=== PATIENT | female | born 1990 | race Caucasian/White ===

== ENCOUNTER → 2016-07-07 | Outpatient (CLI) | payer OTHER ==
[~2016-07-07] MED LIST: BONE SUPPORT PO; CALCIUM 600/VIT1 CAP PO; FERRETTS I40 MG/15 M PO; IBU600 MG PO; MINERAL SUPPLEMENT; PRENATAL PO; PROBIOTIC FORMU1 CAP PO
== END ==
LOC: LDRO 15:40
DX: Z53.9 Procedure and treatment not carried out, unspecified reason (principal)

== ENCOUNTER 2016-09-03 21:59 | Outpatient (CLI) | payer OTHER ==
[~2016-09-03] VITALS: Ht 162.6 cm; Wt 69.5 kg
[2016-09-03 22:25] VITALS: BP 120/85; PULSE 67; TEMP 98.4
[2016-09-03 22:30] VITALS: BP 120/85; PULSE 67; TEMP 98.4
[2016-09-03] MEDS ORDERED: PRENATAL PO (22:32)
[2016-09-03] MEDS ORDERED: PROBIOTIC FORMU1 CAP PO (22:33)
[2016-09-03] MEDS ORDERED: BONE SUPPORT PO (22:35)
[2016-09-03] MEDS ORDERED: FERRETTS I40 MG/15 M PO (22:38)
[2016-09-03] MEDS ORDERED: CALCIUM 600/VIT1 CAP PO (22:40)
[2016-09-03] MEDS ORDERED: MINERAL SUPPLEMENT (22:41)
== END 2016-09-04 00:20 | disposition home or self-care (01) ==
LOC: LDRO 21:59
DX: O62.9 Abnormality of forces of labor, unspecified (principal); Z3A.31 31 weeks gestation of pregnancy

== ENCOUNTER 2016-09-04 03:54 | Inpatient (IN) | payer OTHER ==
[2016-09-04] VITALS (39 sets, daily range): BP systolic 103–180; BP diastolic 57–95; PULSE 63–122; TEMP 97.8–98.9
[~2016-09-04] VITALS: Ht 162.6 cm; Wt 69.5 kg
[~2016-09-04 03:54] MED LIST changes: -IBU600 MG PO
[2016-09-04 04:46] LABS: BASO # 0.1 (0.0-0.2); BASO % 0.4 % (0.0-2.0); EOS % 0.2 % (0-4.0); GRAN # 12.7 (1.4-6.5); GRAN % 81.1 % (42.2-75.2); HEMATOCRIT 40.8 % (37.0-47.0); HEMOGLOBIN 14.2 g/dl (12.5-16.0); LYMPH # 1.9 (1.2-3.4); MEAN CELL VOLUME 92 fl (80.0-100.0); MEAN CORPUSCULAR HEMOGLOBIN 32 pg (27.0-31.0); MEAN CORPUSCULAR HGB CONC 35 g/dl (33.0-37.0); MEAN PLATELET VOLUME 9.8 fl (7.4-10.4); MONO # 0.8 (0.1-0.6); MONO % 5.4 % (1.7-9.3); PLATELET COUNT 234 K/mm3 (130-400); RED BLOOD COUNT 4.46 M/mm3 (4.10-5.30); REDCELL DISTRIBUTION WIDTH-CV 13.2 % (11.5-14.5); WHITE BLOOD COUNT 15.7 K/mm3 (4.8-10.8)
[2016-09-05 08:00] VITALS: BP 108/62; PULSE 74; TEMP 97.7
[2016-09-05 13:00] VITALS: BP 113/75; PULSE 72; TEMP 97.6
[2016-09-05 16:28] VITALS: BP 114/76; PULSE 75; TEMP 97.3
[2016-09-05 21:45] VITALS: BP 118/71; PULSE 74; TEMP 97.8
[2016-09-06 06:25] VITALS: BP 91/66; PULSE 94; TEMP 97.5
[2016-09-06] MEDS ORDERED: IBU600 MG PO (09:23)
== END 2016-09-06 15:10 | disposition home or self-care (01) | DRG 775 ==
LOC: LDRO 03:54 → LDR 04:00 → OB 04:00
PROVIDERS: Obstetrics & Gynecology
PROC: 10E0XZZ Delivery of Products of Conception, External Approach (ICD-10-PCS; principal; 2016-09-04)
DX: O24.420 Gestational diabetes mellitus in childbirth, diet controlled (principal); O71.5 Other obstetric injury to pelvic organs; O99.824 Streptococcus B carrier state complicating childbirth; O77.0 Labor and delivery complicated by meconium in amniotic fluid; Z3A.39 39 weeks gestation of pregnancy; Z37.0 Single live birth
CPT/HCPCS: J2405; J2540; J2590; J7120

== ENCOUNTER 2018-03-30 19:15 | Outpatient (RCR) | payer BC ==
[~2018-03-30] VITALS: Ht 160 cm; Wt 82.6 kg
[~2018-03-30 19:15] MED LIST changes: +IBU600 MG PO
--- NOTE | 2018-04-09 20:15 | NUR ---
2008- EFM DC'D AT THIS TIME FOLLOWING REACTIVE FHT'S FOR BOTH BABY A AND B. MOTHER STATES GOOD FM AND FM AUDIBLE ON US. PT STATES SHE IS TO HAVE APPOINTMENT WITH DR. YOUNG THIS WEEK, WILL DISCUSS WITH HIM WHEN NEXT NST IS NEEDED. QUESTIONS ENCOURAGED AND ANSWERED. 2015- PT LEFT THE UNIT AMBULATORY WITH SPOUSE AND COUSIN.
[2018-04-12] MEDS ORDERED: MAGNESIUM200 MG (01:20)
[2018-04-12] MEDS ORDERED: VITAMIN C500 MG PO (01:20)
[2018-04-12] MEDS ORDERED: OMEGA-3 1000 MG1 CAP PO (01:21)
[2018-04-14] MEDS ORDERED: NEWMANS TOP (11:30)
[2018-04-15] MEDS ORDERED: IBU800 M1 PO (10:02)
[2018-04-15] MEDS ORDERED: NORCO 325 MG-51 TAB PO (10:03)
[2018-04-16] MEDS ORDERED: NORCO 325 MG-51 TAB PO (08:33)
== END 2018-06-20 | disposition home or self-care (01) ==
LOC: LDRO
DX: O30.003 Twin pregnancy, unspecified number of placenta and unspecified number of amniotic sacs, third trimester (principal); Z3A.35 35 weeks gestation of pregnancy

== ENCOUNTER 2018-04-12 00:54 | Inpatient (IN) | payer BC ==
[2018-04-12] VITALS (37 sets, daily range): BP systolic 97–140; BP diastolic 59–91; PULSE 82–142; TEMP 97.4–99.2
--- NOTE | 2018-04-12 01:00 | NUR ---
G2L1. 36-2. Pt ambulatory to LDR 2 with spouse. Clean gown on. EFM and TOCO explained and applied. Twins noted and both tracing well. Pt states her contractions started around 1900 tonight and were irregular but have started to increase and become more regular. Denies LOF or vaginal bleeding. Reports good movement. SVE 1-2/60/-3. Vital signs and assessment completed. Pt oriented to room. Call light within reach. Will continue to monitor.
[2018-04-12] MEDS ORDERED: VITAMIN C500 MG PO (01:20)
[2018-04-12] MEDS ORDERED: MAGNESIUM200 MG (01:20)
[2018-04-12] MEDS ORDERED: OMEGA-3 1000 MG1 CAP PO (01:21)
--- NOTE | 2018-04-12 02:20 | NUR ---
SVE UNCHANGED. 0229: updated on pts status. Orders received. See physican notification. 0244: IV started and LR bolus infusing without difficulties. Plan of care explained to pt and who verbalize understanding. 0303: baby A FHR tracing materal heart rate. 0310: Pulse ox applied and EFM adjusted. 0511: Pt off monitors to void. [id number]: Pt assisted on birthing ball. FHR tracing maternal and pulse ox applied. RN at pts side and adjusting monitors. 0600: SVE 4-5/80/-3 per BRENDA Fry. 0605: updated on pts status. Admit orders received.
[2018-04-12 06:58] LABS: HEMATOCRIT 39.8 % (37.0-47.0); HEMOGLOBIN 13.5 g/dl (12.5-16.0); MEAN CELL VOLUME 95 fl (80.0-100.0); MEAN CORPUSCULAR HEMOGLOBIN 32 pg (27.0-31.0); MEAN CORPUSCULAR HGB CONC 34 g/dl (33.0-37.0); MEAN PLATELET VOLUME 11.5 fl (7.4-10.4); PLATELET COUNT 190 K/mm3 (130-400); RED BLOOD COUNT 4.18 M/mm3 (4.10-5.30); REDCELL DISTRIBUTION WIDTH-CV 14.1 % (11.5-14.5)
--- NOTE | 2018-04-12 07:00 | NUR ---
to bedside for SVE. SVE /-3 per provider. Plan of care discussed, questions answered. Patient reports pain with contractions but denies need for epidural at this time. Call light within reach.
[2018-04-12 07:20] LABS: BAND 3 % (0-10); LYMPHOCYTE 3 % (20.0-51.0); NEUTROPHILS 93 % (42.0-75.2); PLATELET ESTIMATE NORMAL (NORMAL)
[2018-04-12 07:22] LABS: TEAR DROP CELLS 1+
--- NOTE | 2018-04-12 08:05 | NUR ---
at bedside. Vertex/vertex positioning verified via ultrasound. Plan of care discussed, questions answered. Patient requesting epidural placement.
--- NOTE | 2018-04-12 08:20 | NUR ---
0810: Patient sitting up for epidural placement. 0815: Lidocaine. 0818: Epidural Catheter. 0820: Test Dose given, no adverse reactions noted.
--- NOTE | 2018-04-12 08:30 | NUR ---
at bedside. Plan of care discussed with patient and . AROM at 0833, moderate amount of clear fluid noted. SVE 5-6/80/-1 per provider.
--- NOTE | 2018-04-12 08:45 | NUR ---
at bedside. Recurrent variable decelerations noted. SVE /-1. This RN remains at bedside.
--- NOTE | 2018-04-12 09:45 | NUR ---
at bedside, remains on unit reviewing strip. SVE /-1 per provider at 0930. Roman catheter placed at 0945, pericare performed. Attempted to reposition patient to left tilt, but variable deceleration noted to be deeper and longer in that position. Patient back to right tilt with HOB elevated.
--- NOTE | 2018-04-12 10:30 | NUR ---
0955: at bedside. SVE unchanged per provider. Patient repositioned to left lateral at 1000. Provider remains at bedside reviewing strip and discussing plan of care. 1008: Order to start Pitocin at 1mu/min and begin amnioinfusion per protocol. O2 on via face mask per orders. Provider remains at bedside reviewing strip. 1010: IUPC placed. Attempt to begin amnioinfusion per protocol but IV pump continues to report error of distal occlusion. 1020: IUPC replaced by , amnioinfusion started per protocol. Patient repositioned to right lateral. 1023: FHR 90-100s with deep variable decelerations with contractions continuing. SVE unchanged per . Pitocin off. Amnioinfusion stopped. Provider remains at bedside reviewing strip. 1025: Decision for section made. 1030: Patient to OR via bed.
--- NOTE | 2018-04-12 11:30 | NUR ---
Patient into PACU via bed. This RN remains at side.
--- NOTE | 2018-04-12 12:05 | NUR ---
Patient into Room 211 via bed. Oriented to room and plan of care. Crackers and juice provided. Denies needs.
--- NOTE | 2018-04-12 14:05 | NUR ---
Epidural Catheter removed. Pericare performed. Fundus firm, lochia WNL. Patient has had a light diet, reports waves of nausea. Declines Zofran. Encouraged to rest. at bedside. Call light within reach.
--- NOTE | 2018-04-12 15:00 | NUR ---
Patient reports sleeping over the last hour, states she feels better. Vital signs taken, WNL. Fundus firm, lochia WNL. States right leg is still heavy, unable to lift/hold off of bed. Urine output meeting minimum requirement - 30ml per hour. Will continue to monitor. Encouraged to rest again. Call light within reach.
--- NOTE | 2018-04-12 16:30 | NUR ---
Patient reports having one spell of nausea since Zofran but feeling better overall. Percocet given, see eMAR. VS taken. Fundus firm, lochia WNL. Crackers provided. Pericare performed, underwear and peripad in place. Gown changed. Patient transferred to wheelchair, then into nursery to visit the twins.
[2018-04-13 04:40] VITALS: BP 101/80; PULSE 83; TEMP 97.5
[2018-04-13 08:00] VITALS: BP 117/80; PULSE 83; TEMP 97.7
--- NOTE | 2018-04-13 11:08 | NUR ---
Initial visit; Parents thanked for offering congratulations for the of their twin girls and for thanking [facility] for choosing [facility].
--- NOTE | 2018-04-13 11:13 | NUR ---
Initial visit; Parents thanked for offering congratulations for the of their twin girls. thanked them for choosing [facility].
[2018-04-13 16:00] VITALS: BP 122/79; PULSE 88; TEMP 98.2
[2018-04-13 20:05] VITALS: BP 130/86; PULSE 97; TEMP 97.8
[2018-04-13 23:40] VITALS: BP 127/82; PULSE 88; TEMP 97.8
[2018-04-14 05:15] VITALS: BP 113/77; PULSE 79; TEMP 97.5
[2018-04-14 07:36] VITALS: BP 109/76; PULSE 80; TEMP 97.5
--- NOTE | 2018-04-14 10:17 | NUR ---
Congratulated the patient and visited with her for a short while.
[2018-04-14] MEDS ORDERED: NEWMANS TOP (11:30)
[2018-04-14 22:15] VITALS: BP 134/85; PULSE 83; TEMP 98.3
[2018-04-15 07:00] VITALS: BP 128/81; PULSE 80; TEMP 97.4
[2018-04-15] MEDS ORDERED: IBU800 M1 PO (10:02)
[2018-04-15] MEDS ORDERED: NORCO 325 MG-51 TAB PO (10:03)
[2018-04-15 16:30] VITALS: BP 130/93; PULSE 83; TEMP 97.8
[2018-04-15 21:00] VITALS: BP 125/85; PULSE 73; TEMP 97.6
[2018-04-16 08:20] VITALS: BP 130/80; PULSE 76; TEMP 97.1
[2018-04-16] MEDS ORDERED: NORCO 325 MG-51 TAB PO (08:33)
== END 2018-04-16 22:15 | disposition home or self-care (01) | DRG 786 ==
LOC: LDRO 00:54 → LDR 06:13 → OB 06:13
PROVIDERS: Obstetrics & Gynecology; ADMIT Obstetrics & Gynecology
PROC: 10D00Z1 Extraction of Products of Conception, Low, Open Approach (ICD-10-PCS; principal; 2018-04-12)
DX: O30.033 Twin pregnancy, monochorionic/diamniotic, third trimester (principal); O60.14X0 Preterm labor third trimester with preterm delivery third trimester, not applicable or unspecified; Z3A.36 36 weeks gestation of pregnancy; Z37.2 Twins, both liveborn; O76 Abnormality in fetal heart rate and rhythm complicating labor and delivery; O69.81X0 Labor and delivery complicated by cord around neck, without compression, not applicable or unspecified
CPT/HCPCS: J0690; J1885; J2270; J2405; J2590; J7030; J7120